=== PATIENT | female | born 1955 | race Two or more races ===

== ENCOUNTER 2018-04-01 08:42 | Inpatient (IN) | payer BC ==
[~2018-04-01] VITALS: Ht 167.6 cm; Wt 75.3 kg
--- NOTE | 2018-04-01 08:49 | NUR ---
BIBRA C/O RIGHT SIDED RIB CAGE PAIN WORSE UPON INSPIRATION. RECENT LIPOSUCTION 2 WEEKS AGO. A/OX 4, BREATHING EVEN AND UNLABORED. NO SOB, NAD, VITALS STABLE. SAFETY AND COMFORT MEASURES IN PLACE. AWAITING MD ORDERS.
--- NOTE | 2018-04-01 09:07 | NUR ---
EKG ON GOING
--- NOTE | 2018-04-01 09:07 | NUR ---
LIFE SKILLS TEACHER AT
--- NOTE | 2018-04-01 09:07 | NUR ---
HEAD PIECE ASSEMBLER AT BEDSIDE
--- NOTE | 2018-04-01 09:10 | NUR ---
ICT QUALITY ASSURANCE ENGINEER AT BEDSIDE.
[2018-04-01] MEDS ORDERED: IOHEXOL-350 100 ML VIAL IV ONE (09:21)
[2018-04-01] MEDS ORDERED: CELLULOSE,OXIDIZED 1 PKT EACH MC ONE (09:21)
[2018-04-01] MEDS ORDERED: IV NS 0.9% 250 ML IV ONE (09:21)
[2018-04-01] MEDS ORDERED: CT SWABBABLE VALVE TRANS SET 1 EA INFUS.SET MC ONE (09:23)
[2018-04-01 09:28] LABS: BASOPHILS # (AUTO) 0.1 /CMM (0.0-0.2); BASOPHILS % (AUTO) 0.5 % (0.0-2.0); EOSINOPHILS % (AUTO) 0.1 % (0.0-6.0); HEMATOCRIT 40 % (33-45); HEMOGLOBIN 13.5 g/dL (11.5-14.8); MEAN CORPUSCULAR HEMOGLOBIN 29 PG (26.0-33.0); MEAN CORPUSCULAR HGB CONC 34 g/dl (31.0-36.0); MEAN CORPUSCULAR VOLUME 86 fL (82-100); MONOCYTES # (AUTO) 1.3 /CMM (0.1-1.30); MONOCYTES % (AUTO) 6.6 % (2.0-12.0); NEUTROPHILS # (AUTO) 16.5 /CMM (1.8-8.9); NEUTROPHILS % (AUTO) 82.8 % (43.0-81.0); PLATELET COUNT (AUTO) 368 /CMM (150-450); RED BLOOD CELL COUNT(AUTO) 4.67 MIL/uL (4.0-5.2); WHITE BLOOD COUNT (AUTO) 19.9 K/uL (4.3-11.0)
[2018-04-01 09:30] LABS: CALCIUM, SERUM 9.1 mg/dL (8.5-10.1); CARBON DIOXIDE 28 mmol/L (21-32); CHLORIDE 100 mmol/L (98-107); CREATININE 1.1 mg/dL (0.6-1.3); GLUCOSE 127 mg/dL (74-106); POTASSIUM 4.6 mmol/L (3.5-5.1); SODIUM SERUM 133 mmol/L (136-145); UREA NITROGEN, BLOOD 15 mg/dL (7-18)
[2018-04-01 09:34] LABS: TROPONIN I < 0.017 ng/mL (0.00-0.056)
--- NOTE | 2018-04-01 09:34 | NUR ---
PT TO CT
[2018-04-01 09:43] LABS: B-TYPE NATRIURETIC PEPTIDE 136 PG/ML (0-125)
[2018-04-01 09:44] LABS: INR 0.98 (0.85-1.15)
[2018-04-01] MEDS ORDERED: HEPARIN INFUSION/D5W 500 ML IV PRN (10:30)
[2018-04-01] MEDS ORDERED: HEPARIN SODIUM, PORCINE 5000 UNITS/1 ML VIAL IV ONE (10:30)
[2018-04-01] MEDS ORDERED: HEPARIN SODIUM, PORCINE 5000 UNITS/1 ML VIAL ONE (10:38)
--- NOTE | 2018-04-01 10:50 | NUR ---
PER DR. FRANKS, GIVE HEPARIN BOLUS OF 5000 UNITS IV THEN START DRIP PER PROTOCOL.
--- NOTE | 2018-04-01 10:53 | NUR ---
[facility] paged - [place] by exchange
[2018-04-01] MEDS ORDERED: HYDROCODONE/APAP 5/325MG 1 EACH TABLET PO PRN (11:30)
[2018-04-01] MEDS ORDERED: MAGNESIUM HYDROXIDE 30 ML UDC PO PRN (11:30)
[2018-04-01] MEDS ORDERED: Z GUARD REMEDY 2 OZ OINT TP PRN (11:30)
[2018-04-01] MEDS ORDERED: MAG HYDROX/AL HYDROX/SIMETH 30 ML UDC PO PRN (11:30)
[2018-04-01] MEDS ORDERED: ONDANSETRON HCL/PF 4 MG/2 ML VIAL IVP PRN (11:30)
[2018-04-01] MEDS ORDERED: ZOLPIDEM TARTRATE 5 MG TABLET PO PRN (11:30)
--- NOTE | 2018-04-01 11:45 | NUR ---
RN NOTES RECEIVED REPORT FORM AKIL ER NURSE FOR PATIENT COMING WITH DIAGNOSIS OF PULMONARY EMBOLISM UNDER THE CARE OF DR. THOMPSON WITH LAUREN ACUITY. BED ZEROED DOWN, ROOM PREPARED AWAITING PATIENT'S ARRIVAL.
--- NOTE | 2018-04-01 11:45 | NUR ---
REPORT GIVEN TO RN, DONAL FOR RICH UPON ADMISSION.
--- NOTE | 2018-04-01 12:15 | NUR ---
patient transported to [facility] via acls protocol for admission. rn, aram to provide luz.
--- NOTE | 2018-04-01 12:15 | NUR ---
RN NOTES RECEIVED PATIENT VIA STRETCHER, ALERT AND ORIENTEDX3. ON ROOM AIR, BREATHING EVEN AND UNLABORED. SATURATING WELL AT 98 BUT COMPLAINTS OF PAIN IN BREATHING IN. ON TELEMONITOR: SINUS RHYTHM HR AT 89. SKIN WARM TO TOUCH, G 28 IV ON THE RIGHT AC INTACT AND FLUSHES WELL. WITH ONGOING HEPARIN DRIP TO ADMINISTER 1350 UNITS RUNNING AT 27CC/HR. PATIENT PLACE COMFORTABLE TO BED. ORIENTED TO FLOOR AND CALL LIGHT ENCOURAGE TO VERBALIZED FEELINGS AND CONCERN, CALL LIGHT PLACED WITHIN EASY REACH. BED PLACE LOW AND LOCKED. WILL CONTINUE TO MONITOR
[2018-04-01 16:00] VITALS: BP 121/74
--- NOTE | 2018-04-01 19:36 | NUR ---
RN NOTES ENDORSED PATIENT FOR CONTINUITY OF CARE. NO ACUTE CHANGES FOR THE ENTIRE SHIFT. ON ROOM AIR. NO COMPLAINTS OF DIFFICULTY OF BREATHING. STILL ON HEPARIN DRIP AT 27CC/HR. A LL NEEDS ATTENDED. CALL LIGHT WITHIN REACH. BED LOW AND LOCKED
[2018-04-01 20:00] VITALS: BP 121/69
--- NOTE | 2018-04-01 20:00 | NUR ---
RN INITIAL NOTES RECEIVED PATIENT IN BED, ALERT AND ORIENTEDX3. ON ROOM AIR, BREATHING EVEN AND UNLABORED. SATURATING WELL AT 98 BUT COMPLAINTS OF PAIN IN BREATHING IN. ON TELEMONITOR: SINUS RHYTHM HR AT 92. G 28 IV ON THE RIGHT AC INTACT AND FLUSHES WELL. WITH ONGOING HEPARIN DRIP TO ADMINISTER 1350 UNITS RUNNING AT 27CC/HR. CALL LIGHT PLACED WITHIN EASY REACH. BED PLACE LOW AND LOCKED. WILL CONTINUE TO MONITOR
[2018-04-02] VITALS: BP 118/67
[2018-04-02 04:00] VITALS: BP 123/66
[2018-04-02] MEDS ORDERED: ALBUTEROL FS 2.5 MG/0.5 ML VIAL.NEB NEB ONE (04:30)
[2018-04-02] MEDS ORDERED: HEPARIN INFUSION/D5W 500 ML IV ONE (05:22)
[2018-04-02] MEDS: HEPARIN INFUSION/D5W 500 ML IV PRN (05:38)
[2018-04-02 06:30] LABS: BASOPHILS # (AUTO) 0.1 /CMM (0.0-0.2); BASOPHILS % (AUTO) 0.7 % (0.0-2.0); EOSINOPHILS % (AUTO) 0.2 % (0.0-6.0); HEMATOCRIT 39 % (33-45); LYMPHOCYTES # (AUTO) 3.7 /CMM (0.8-4.8); LYMPHOCYTES % (AUTO) 20.9 % (20.0-44.0); MEAN CORPUSCULAR HEMOGLOBIN 29 PG (26.0-33.0); MEAN CORPUSCULAR HGB CONC 34 g/dl (31.0-36.0); MEAN CORPUSCULAR VOLUME 85 fL (82-100); MONOCYTES # (AUTO) 1.9 /CMM (0.1-1.30); MONOCYTES % (AUTO) 10.4 % (2.0-12.0); NEUTROPHILS # (AUTO) 12.1 /CMM (1.8-8.9); NEUTROPHILS % (AUTO) 67.8 % (43.0-81.0); PLATELET COUNT (AUTO) 388 /CMM (150-450); RDW COEFFICIENT OF VARIATION 12.8 (11.5-15.0); RED BLOOD CELL COUNT(AUTO) 4.53 MIL/uL (4.0-5.2); WHITE BLOOD COUNT (AUTO) 17.8 K/uL (4.3-11.0)
--- NOTE | 2018-04-02 06:34 | NUR ---
RN NOTES NO ACUTE CHANGES OVER .NET PROGRAMMER. HEPARIN DRIP INFUSING AT 27CC/HR. PT COMPLAIN OF PAIN ON BREATHING. PT REFUSED PAIN MEDS. BREATHING TREATMENT ORDERED AND GIVEN. AM APTT LABS DRAWN. ALL NEEDS ATTENDED. CALL LIGHT WITHIN REACH. BED LOW AND LOCKED. WILL ENDORSE FOR RICH .
[2018-04-02 06:48] LABS: CALCIUM, SERUM 8.8 mg/dL (8.5-10.1); CREATININE 1.1 mg/dL (0.6-1.3); MAGNESIUM 2.1 mg/dL (1.8-2.4); PHOSPHORUS 3.3 mg/dL (2.5-4.9); POTASSIUM 4.1 mmol/L (3.5-5.1)
--- NOTE | 2018-04-02 07:15 | NUR ---
SUPERVISOR PREPRESS INITIAL NOTES RECIEVED REPORT AND PATIENT FROM PM NURSE, PATIENT RESTING IN BED NO ACUTE DISTRESS NOTED, A&O X 4 TAMAZIGHT SPEAKING, ON ROOM AIR SAT ABOVE 97%, ON TELE MON SR 84, ON HEPARIN DRIP MD ORDERED, IV SITE INTACT AND PATENT NO INFILTRATION NOTED, ALL SAFETY MEASURES INITIATED, WILL CONTINUE TO MONITOR.
[2018-04-02 08:00] VITALS: BP 108/66
[2018-04-02 12:00] VITALS: BP 113/69
[2018-04-02] MEDS: ACETAMINOPHEN 325 MG TABLET PO PRN (12:38)
--- NOTE | 2018-04-02 13:26 | NUR ---
CHILDCARE DIRECTOR NOTES PATIENT HAS TEMP 100.7 GAVE TYLENOL MD ORDERED AND ICE PACKS WELL, WILL CONTINUE TO MONITOR.
--- NOTE | 2018-04-02 14:42 | NUR ---
GREENHOUSE GROWER NOTES PATIENTS TEMP 98.7 NOW, WILL CONTINUE TO MONITOR.
[2018-04-02 16:00] VITALS: BP_SYST 106; BP_SYST 113; BP_DIAS 64; BP_DIAS 69
--- NOTE | 2018-04-02 18:27 | NUR ---
CABLE COVERER ENDING NOTES PT STABLE WITH NO ACUTE CHANGES NOTED, ON HEP DRIP MD ORDERED WITH NO CHANGES, WILL CONTINUE CARE AND ENDORSE TO PM NURSE.
[2018-04-02 20:00] VITALS: BP 105/69
--- NOTE | 2018-04-02 20:00 | NUR ---
RN INITIAL NOTES RECEIVED REPORT PATIENT RESTING IN BED NO ACUTE DISTRESS NOTED, A&O X , [place] LUCIAN SPEAKING, ON ROOM AIR SAT ABOVE 97%, ON TELE MON SR 84, ON HEPARIN DRIP MD ORDERED, IV SITE INTACT AND PATENT NO INFILTRATION NOTED, ALL SAFETY MEASURES INITIATED, WILL CONTINUE TO MONITOR.
--- NOTE | 2018-04-02 21:28 | NUR ---
RN INITIAL NOTES RECEIVED REPORT AND PATIENT FROM PM NURSE, PATIENT RESTING IN BED NO ACUTE DISTRESS NOTED, A&O X 4 FRISIAN SPEAKING, ON ROOM AIR SAT ABOVE 97%, ON TELE MON SR 84, ON HEPARIN DRIP MD ORDERED, IV SITE INTACT AND PATENT NO INFILTRATION NOTED, ALL SAFETY MEASURES INITIATED, WILL CONTINUE TO MONITOR.
[2018-04-03] VITALS: BP 110/68
[2018-04-03] MEDS: HEPARIN INFUSION/D5W 500 ML IV PRN ×2 (00:28→18:35)
[2018-04-03 04:00] VITALS: BP 112/70
--- NOTE | 2018-04-03 06:50 | NUR ---
RN CLOSING NOTES PATIENT RESTING IN BED WITH NO ACUTE DISTRESS NOTED. PT STABLE NO CHANGES NOTED. ALL DUE MEDS GIVEN, ALL NEEDS MET, WILL ENDORSE TO AM FOR RICH.
[2018-04-03 06:56] LABS: CALCIUM, SERUM 8.8 mg/dL (8.5-10.1); POTASSIUM 4.3 mmol/L (3.5-5.1)
[2018-04-03 07:25] LABS: HEMATOCRIT 37 % (33-45); HEMOGLOBIN 12.7 g/dL (11.5-14.8); MEAN CORPUSCULAR VOLUME 85 fL (82-100); RED BLOOD CELL COUNT(AUTO) 4.42 MIL/uL (4.0-5.2)
[2018-04-03 07:26] LABS: BASOPHILS % (AUTO) 0.5 % (0.0-2.0); EOSINOPHILS % (AUTO) 0.4 % (0.0-6.0); LYMPHOCYTES % (AUTO) 24.4 % (20.0-44.0); MEAN CORPUSCULAR HEMOGLOBIN 29 PG (26.0-33.0); MEAN CORPUSCULAR HGB CONC 34 g/dl (31.0-36.0); MONOCYTES % (AUTO) 13.9 % (2.0-12.0); NEUTROPHILS % (AUTO) 60.8 % (43.0-81.0); PLATELET COUNT (AUTO) 379 /CMM (150-450); RDW COEFFICIENT OF VARIATION 14 (11.5-15.0)
--- NOTE | 2018-04-03 07:30 | NUR ---
RETOUCHING OPERATOR INITIAL NOTES RECEIVED REPORT FROM PM NURSE , PATIENT RESTING IN BED NO ACUTE DISTRESS NOTED, A&O X 4 BULGARIAN SPEAKING, ON ROOM AIR , ON TELE Mon 91, ON HEPARIN DRIP MD ORDERED, IV SITE INTACT AND PATENT NO INFILTRATION NOTED, ALL SAFETY MEASURES INITIATED,BED IS LOW AND IN LOCKED POSITION,CALL LIGHT IN REACH. WILL CONTINUE TO MONITOR.
[2018-04-03 08:00] VITALS: BP 106/59
[2018-04-03 12:00] VITALS: BP 102/65
[2018-04-03] MEDS: GUAIFENESIN/D-METHORPHAN HB 5 ML UDC PO PRN (14:13)
--- NOTE | 2018-04-03 15:00 | NUR ---
GUEST SERVICES ASSISTANT NOTES SEEN BY ,UPDATED PATIENT CONDITION WIT LABS,CONTINUE CURRENT TREATMENT AND GOT NEW ORDERS FOR DRY COUGH STARTED NOON TIME.PATIENT MADE AWARE.RT MADE AWARE ABOUT INCENTIVE SPIROMETER ORDER.TEACHING REGARDING INCENTIVE SPIROMETER GIVEN BY RT FREDDY.FAMILY IS AT BEDSIDE.
--- NOTE | 2018-04-03 15:03 | NUR ---
LUBRICATION SERVICER NOTES SEEN BY WITH NO NEW ORDERS
[2018-04-03 16:00] VITALS: BP 125/74
[2018-04-03] MEDS: ACETAMINOPHEN 325 MG TABLET PO PRN (17:07)
--- NOTE | 2018-04-03 17:19 | NUR ---
INSPECTOR TYPE NOTES NOTED WITH TEMP OF 100.1F, MADE AWARE.RELAYED RESULT OF C-XRAY.WILL CONTINUE TO MONITOR.PRN MEDS GIVEN.
[2018-04-03 19:08] LABS: APPEARANCE,URINE CLEAR (CLEAR); BILIRUBIN,URINE NEGATIVE (NEGATIVE); BLOOD, URINE NEGATIVE Ery/uL (NEGATIVE); COLOR,URINE YELLOW (YELLOW); KETONES,URINE NEGATIVE (NEGATIVE); LEUKOCYTE ESTERASE ,URINE NEGATIVE (NEGATIVE); NITRITE, URINE NEGATIVE (NEGATIVE); PH,URINE 6.5 (5.0-8.0); PROTEIN,URINE TRACE mg/dl (NEGATIVE); UGLUCOSE NEGATIVE (NEGATIVE)
--- NOTE | 2018-04-03 19:26 | NUR ---
PHOTOLITHOGRAPHER CLOSING NOTES PATIENT RESTING IN BED NO ACUTE DISTRESS NOTED, A&O X 4 SLOVENIAN SPEAKING, ON ROOM AIR , ON TELE MON SR 96, ON HEPARIN DRIP MD ORDERED, IV SITE INTACT AND PATENT NO INFILTRATION NOTED, ALL SAFETY MEASURES INITIATED,BED IS LOW AND IN LOCKED POSITION,CALL LIGHT IN REACH. TEMP IS 99.6.REFUSED TO CHECK WEIGHT.OFFERED MORE THAN 3 TIMES DURING SHIFT.ENDORSED TO PM NURSE FOR RICH.
[2018-04-03 19:31] LABS: BACTERIA,URINE Rare /HPF (None Seen); RBC,URINE 0-2 /HPF (0-2); SQUAMOUS EPITHELIAL CELL,UR Few /HPF (None Seen); WBC,URINE 0-2 /HPF (0-3)
[2018-04-03 19:32] LABS: MUCUS,URINE Few /LPF (None Seen)
[2018-04-03 20:00] VITALS: BP 100/63
[2018-04-03] MEDS ORDERED: ACETAMINOPHEN 650 MG/20.3 ML UDC PO ONE (21:00)
--- NOTE | 2018-04-03 21:02 | NUR ---
RN NOTE TEMPERATURE OF 99.6F NOTED, NOTIFIED DR AARON SINHA, NEW ORDER OF TYLENOL 650 MG PO ONCE GIVEN AND CARRIED OUT
[2018-04-03] MEDS ORDERED: ACETAMINOPHEN 325 MG TABLET PO ONE (22:00)
[2018-04-04] VITALS: BP 115/66
[2018-04-04 04:00] VITALS: BP 113/69
[2018-04-04 05:21] VITALS: BP 113/69
--- NOTE | 2018-04-04 06:54 | NUR ---
RN NOTE PATIENT IS ON CONTINUOUS HEPARIN DRIPS, TOLERATES WELL, NO S/S OF BLEEDING NOTED, NO SOB NOTED, PATIENT IS STABLE, WILL ENDORSE TO AM SHIFT TO CONTINUE CARE Addendum: 04/04/18 at 0723 by NILSA FINN RN aPTT is pending, notified Shon WORKMAN to adjust heparin dose once aPTT available
[2018-04-04 07:31] LABS: BASOPHILS # (AUTO) 0.1 /CMM (0.0-0.2); BASOPHILS % (AUTO) 0.6 % (0.0-2.0); HEMATOCRIT 36 % (33-45); HEMOGLOBIN 11.9 g/dL (11.5-14.8); LYMPHOCYTES # (AUTO) 2.4 /CMM (0.8-4.8); LYMPHOCYTES % (AUTO) 20.7 % (20.0-44.0); MEAN CORPUSCULAR HEMOGLOBIN 28 PG (26.0-33.0); MEAN CORPUSCULAR HGB CONC 33 g/dl (31.0-36.0); MEAN CORPUSCULAR VOLUME 86 fL (82-100); MONOCYTES # (AUTO) 1.2 /CMM (0.1-1.30); MONOCYTES % (AUTO) 10.8 % (2.0-12.0); NEUTROPHILS # (AUTO) 7.8 /CMM (1.8-8.9); NEUTROPHILS % (AUTO) 66.9 % (43.0-81.0); PLATELET COUNT (AUTO) 409 /CMM (150-450); RDW COEFFICIENT OF VARIATION 13.1 (11.5-15.0); RED BLOOD CELL COUNT(AUTO) 4.21 MIL/uL (4.0-5.2); WHITE BLOOD COUNT (AUTO) 11.6 K/uL (4.3-11.0)
[2018-04-04 07:32] LABS: CALCIUM, SERUM 8.8 mg/dL (8.5-10.1); MAGNESIUM 2.4 mg/dL (1.8-2.4); PHOSPHORUS 3.1 mg/dL (2.5-4.9); POTASSIUM 4.6 mmol/L (3.5-5.1)
[2018-04-04 08:00] VITALS: BP_SYST 116; BP_DIAS 50; BP_DIAS 53
[2018-04-04] MEDS: PANTOPRAZOLE 40 MG TABLET.DR PO SCH (09:07)
[2018-04-04] MEDS: HEPARIN INFUSION/D5W 500 ML IV PRN (13:52)
[2018-04-04 16:00] VITALS: BP 112/64
--- NOTE | 2018-04-04 18:38 | NUR ---
RN NOTE: PATIENT REMAINS STABLE DURING SHIFT ALERT AWAKE ORIENTED X 4. NO BREATHING DIFFICULTY NOTED. DENIES CHEST PAIN & DISCOMFORT. NO SIGNIFICANT CHANGES NOTED DURING SHIFT. CONTINUE TO MONITOR. CONTINUE ON HEPARIN DRIP, TODAY PTT 60, NO CHANGES MADE TO HEPARIN. SKIN INTACT, NO FALL/INJURY NOTED. CALL LIGHT WITHIN REACH. WILL CONTINUE TO MONITOR.
--- NOTE | 2018-04-04 19:30 | NUR ---
RN NOTES RECEIVED PATIENT IN BED AWAKE. AO X 3, ABLE TO MAKE NEEDS KNOWN. NO ACUTE DISTRESS NOTED. DENIES ANY PAIN AT THIS TIME. IV SITE PATENT, INTACT; HEPARIN DRIP INFUSING ORDERED. NO BLEEDING NOTED. SAFETY REMINDERS GIVEN. ON LOW BED WITH BILATERAL UPPER SIDE RAILS UP. CALL [place] WITHIN EASY REACH. WILL CONTINUE TO MONITOR.
[2018-04-04 20:00] VITALS: BP 110/67
[2018-04-04] MEDS: GUAIFENESIN/D-METHORPHAN HB 5 ML UDC PO PRN (23:03)
[2018-04-05] VITALS: BP 165/82
[2018-04-05 04:00] VITALS: BP 110/67
--- NOTE | 2018-04-05 06:09 | NUR ---
RN NOTES PATIENT ASLEEP, EASILY AROUSABLE. RESPIRATIONS EVEN. NO SIGNS OF PAIN NOTED. DUE MED GIVEN WITH NO ASE NOTED. HEPARIN DRIP ONGOING. BLOOD DRAWN FOR PTT ORDERED. NEEDS ATTENDED. SAFETY PRECAUTIONS AND COMFORT MEASURES IN PLACE. WILL GIVE REPORT TO DAY SHIFT FOR CONTINUITY OF CARE.
[2018-04-05 07:09] LABS: BASOPHILS # (AUTO) 0.1 /CMM (0.0-0.2); BASOPHILS % (AUTO) 0.6 % (0.0-2.0); EOSINOPHILS % (AUTO) 2.5 % (0.0-6.0); HEMATOCRIT 37 % (33-45); HEMOGLOBIN 11.7 g/dL (11.5-14.8); LYMPHOCYTES % (AUTO) 29.8 % (20.0-44.0); MEAN CORPUSCULAR HEMOGLOBIN 28 PG (26.0-33.0); MEAN CORPUSCULAR HGB CONC 32 g/dl (31.0-36.0); MEAN CORPUSCULAR VOLUME 87 fL (82-100); MONOCYTES # (AUTO) 1.1 /CMM (0.1-1.30); MONOCYTES % (AUTO) 10.7 % (2.0-12.0); NEUTROPHILS # (AUTO) 5.6 /CMM (1.8-8.9); NEUTROPHILS % (AUTO) 56.4 % (43.0-81.0); PLATELET COUNT (AUTO) 424 /CMM (150-450); RDW COEFFICIENT OF VARIATION 14.2 (11.5-15.0); RED BLOOD CELL COUNT(AUTO) 4.22 MIL/uL (4.0-5.2); WHITE BLOOD COUNT (AUTO) 9.9 K/uL (4.3-11.0)
[2018-04-05 07:10] LABS: CALCIUM, SERUM 8.7 mg/dL (8.5-10.1); MAGNESIUM 2.1 mg/dL (1.8-2.4); PHOSPHORUS 3.8 mg/dL (2.5-4.9); POTASSIUM 4.4 mmol/L (3.5-5.1)
--- NOTE | 2018-04-05 07:15 | NUR ---
M/S RN NOTES RECEIVED PT IN BED. AWAKE A/OX4. AMBULATED TO BATHROOM. STEADY GAIT NOTED. HEPARIN HELD D/T PTT LEVEL. LUNG SOUNDS CLEAR. NOT IN RESP DISTRESS. NO PAIN PER PT. BS ACTIVE ALL QUADS. PT CONCERNED WITH DISCHARGE FOR TODAY. SAFETY PRECAUTIONS MAINTAINED. CALL LIGHT IN REACH. BED IN LOCKED/LOWEST POSITION.
[2018-04-05 08:00] VITALS: BP 98/65
[2018-04-05] MEDS: PANTOPRAZOLE 40 MG TABLET.DR PO SCH (08:20)
[2018-04-05] MEDS ORDERED: APIX5TAB PO (08:23)
[2018-04-05] MEDS ORDERED: PANT40TA2 PO (08:23)
--- NOTE | 2018-04-05 13:45 | NUR ---
M/S RN NOTES PATIENT WALKED OFF FLOOR IN STABLE CONDITION ACCOMPANIED BY SON. DISCHARGE AND BELONGINGS LIST SIGNED. TELE BOX REMOVED. IV AND ID BAND REMOVED. PRESCRIPTIONS FAXED TO PHARMACY BY JI WILLIAM.
== END 2018-04-05 14:27 | disposition home or self-care (01) | DRG 300 ==
LOC: ER 08:44 → TELE-TD 11:43 → TELE1 04-02 09:47 → MEDSG1 04-04 12:36
PROVIDERS: ADMIT Family Medicine; ATTEND Family Medicine
DX: T81.718A Complication of other artery following a procedure, not elsewhere classified, initial encounter (principal); E87.1 Hypo-osmolality and hyponatremia; I26.99 Other pulmonary embolism without acute cor pulmonale; D72.829 Elevated white blood cell count, unspecified; R73.9 Hyperglycemia, unspecified; Z88.8 Allergy status to other drugs, medicaments and biological substances; Y84.9 Medical procedure, unspecified as the cause of abnormal reaction of the patient, or of later complication, without mention of misadventure at the time of the procedure; Y92.89 Other specified places as the place of occurrence of the external cause; Z74.09 Other reduced mobility; R06.89 Other abnormalities of breathing; E86.1 Hypovolemia; Z83.3 Family history of diabetes mellitus; Z82.3 Family history of stroke
CPT/HCPCS: 36415; 71045-TC; 80048-TC; 80061-TC; 81000-TC; 83735-TC; 83880; 84100-TC; 84484-TC; 85025-TC; 85730-TC; 87081-TC; 87086-TC; 93307-TC; 93970-TC; A4606; J1644; J7050; Q9967; Z7610